=== PATIENT | female | born 1985 | race American Indian/Alaskan Native ===

== ENCOUNTER 2020-07-26 13:50 | Emergency (ER) | payer SELFPAY ==
[2020-07-26 14:16] VITALS: BP 145/92
[2020-07-26] MEDS ORDERED: IBUPROFEN 600 MG TAB PO ONE (16:22)
--- NOTE | 2020-07-26 16:30 | Emergency Department Report ---
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 Patient denies any fever reports she has chest tenderness and shortness of breath worse and worse with exertion. Patient also states that she has chest pain is worse with deep breathing. Patient denies any fever chills no nausea no vomiting no abdominal pain. Has taken Dimetapp. ED Review of Systems ROS: Stated complaint: SOB/COUGH Other details as noted in HPI ED Past Medical Hx - Past Medical History Previous Medical History?: No - Surgical History Past Surgical History?: No Minor Respiratory Exam - Exam General: Vital signs noted. No distress. Alert and acting appropriately. Neurologic: Alert and oriented, no deficits. Musculoskeletal: Unremarkable. ED Course Vital Signs 07/26/20 14:15 Temperature 98.1 F Pulse Rate 71 Respiratory 16 Rate Blood Pressure 145/92 [Right] O2 Sat by Pulse 97 Oximetry ED Medical Decision Making - Radiology Data Radiology results: report reviewed Print Report Referring Physician:DUDLEY LANGPatient Name:PEYTON THOMPSONPatient ID:[id number] of :[id number]:FemaleAccession:[id number] Date:[id number] Status:Finalized Findings [address] [address] XRay Report Signed Patient: PEYTON THOMPSON MR#: [id number] : 1985 Acct:[id number] Age/Sex: 35 / F ADM Date: 07/26/20 Loc: ED Attending Dr: Ordering Physician: JAN CHAUHAN Date of Service: 07/26/20 Procedure(s): XR chest routine 2V Accession Number(s): [id number] cc: JAN CHAUHAN Fluoro Time In Minutes: CHEST 2 VIEWS INDICATION / CLINICAL INFORMATION: sob cough cp. COMPARISON: None available. FINDINGS: SUPPORT DEVICES: None. HEART / MEDIASTINUM: No significant abnormality. LUNGS / PLEURA: No significant pulmonary or pleural abnormality. No pneumothorax. ADDITIONAL FINDINGS: No significant additional findings. IMPRESSION: 1. No acute findings. Signer Name: Yevgeniy Ashley MD Signed: 07/26/2020 6:11 PM Workstation Name: [id number] Transcribed By: TL Dictated By: Yevgeniy Ashley MD Electronically Authenticated By: Yevgeniy Ashley MD Signed Date/Time: 07/26/201810 - Medical Decision Making 35-year-old -[place]yp[place] female presents to the emergency room complaining of cold symptoms for 3 days. Patient denies any fever reports she has chest tenderness and shortness of breath worse and worse with exertion. Patient also states that she has chest pain is worse with deep breathing. Patient denies any fever chills no nausea no vomiting no abdominal pain. Has taken Dimetapp. Patient will be given ibuprofen for pain. Chest x-ray to be ordered. Critical care attestation.: If time is entered above; I have spent that time in minutes in the direct care of this critically ill patient, excluding procedure time. ED Disposition Clinical Impression: URI, acute Disposition: DC-01 TO HOME OR SELFCARE Is pt being admited?: No Does the pt Need Aspirin: No Condition: Stable Instructions: Viral Syndrome (ED) Additional Instructions: Chest x-ray is negative for any acute findings. I recommend need to take bhlu-ipn-[id number] Zyrtec's or Xyzal. You can try rhln-mxs-ofslbrp Robitussin for cough. Follow-up with your primary care provider. Tylenol or ibuprofen as needed for pain and fever. Referrals: BRANDON MIKE MD [Staff Physician] - 3-5 Days [facility] [Provider Group] - 3-5 Days Forms: Work/School Release Form(ED)
--- NOTE | 2020-07-26 18:16 | XRay Report ---
CHEST 2 VIEWS INDICATION / CLINICAL INFORMATION: sob cough cp. COMPARISON: None available. FINDINGS: SUPPORT DEVICES: None. HEART / MEDIASTINUM: No significant abnormality. LUNGS / PLEURA: No significant pulmonary or pleural abnormality. No pneumothorax. ADDITIONAL FINDINGS: No significant additional findings. IMPRESSION: 1. No acute findings. Signer Name: Yevgeniy Ashley MD Signed: 07/26/2020 6:11 PM Workstation Name: [id number]
== END 2020-07-26 19:15 | disposition home or self-care (01) ==
LOC: ED 13:50
DX: J06.9 Acute upper respiratory infection, unspecified (principal)
CPT/HCPCS: 36415; 71046; 84702